=== PATIENT | female | born 1995 | race Caucasian/White ===

== ENCOUNTER 2017-10-03 19:15 | Emergency (ER) | payer MEDICAID ==
[~2017-10-03] VITALS: Ht 162.6 cm; Wt 86.0 kg
[2017-10-03 19:39] VITALS: BP 124/81
[2017-10-03] MEDS ORDERED: ACETAMINOPHEN 500 MG TABLET ONE (20:20)
[2017-10-03] MEDS ORDERED: IBUPROFEN 200 MG TABLET ONE (20:20)
[2017-10-03] MEDS ORDERED: IBUPROFEN 200 MG TABLET PO ONE (20:30)
[2017-10-03] MEDS ORDERED: ACETAMINOPHEN 500 MG TABLET PO ONE (20:30)
== END 2017-10-03 21:32 | disposition home or self-care (01) ==
LOC: ED 21:25
DX: J20.8 Acute bronchitis due to other specified organisms (principal)
CPT/HCPCS: 71046; 93005; 99284

== ENCOUNTER 2018-06-19 16:57 | Emergency (ER) | payer MEDICAID ==
[~2018-06-19] VITALS: Ht 162.6 cm; Wt 88.9 kg
[2018-06-19 17:06] VITALS: BP 124/73
== END 2018-06-19 18:09 | disposition home or self-care (01) ==
LOC: ED 17:20
DX: S46.912A Strain of unspecified muscle, fascia and tendon at shoulder and upper arm level, left arm, initial encounter (principal); X50.9XXA Other and unspecified overexertion or strenuous movements or postures, initial encounter; Y93.89 Activity, other specified; Y92.89 Other specified places as the place of occurrence of the external cause; Y99.0 Civilian activity done for income or pay; F17.200 Nicotine dependence, unspecified, uncomplicated; Z90.89 Acquired absence of other organs
CPT/HCPCS: 99281

== ENCOUNTER 2018-07-01 17:02 | Emergency (ER) | payer MEDICAID ==
[~2018-07-01] VITALS: Ht 162.6 cm; Wt 94.6 kg
[2018-07-01 17:52] LABS: BASOPHILS # (AUTO) 0.02 x10^3/uL (0-0.3); BASOPHILS % (AUTO) 0 % (0-1); EOSINOPHILS # (AUTO) 0.22 x10^3/uL (0-0.8); EOSINOPHILS % (AUTO) 3 % (1-7); LYMPHOCYTES % (AUTO) 25 % (22-44); MD NO; MEAN CORPUSCULAR HEMOGLOBIN 30.3 pg (27.0-34.8); MEAN CORPUSCULAR HGB CONC 34.5 g/dL (32.4-35.8); MEAN CORPUSCULAR VOLUME 87.7 fL (80-100); MEAN PLATELET VOLUME 9.4 fL (7.4-10.4); MONOCYTES # (AUTO) 0.43 x10^3/uL (0-1.4); MONOCYTES % (AUTO) 5 % (2-9); NEUTROPHILS # (AUTO) 5.74 x10^3/uL (1.8-8.0); NEUTROPHILS % (AUTO) 68 % (42-75); PLATELET COUNT 236 x10^3/uL (130-400); RED BLOOD COUNT 4.77 x10^6/uL (3.82-5.3); RED CELL DISTRIBUTION WIDTH 14.6 % (9.6-15.2)
[2018-07-01 18:32] LABS: MICROSCOPIC INDICATED
[2018-07-01 18:48] LABS: CULTURE INDICATED? NO
[2018-07-01 19:26] VITALS: BP 116/68
== END 2018-07-01 19:59 | disposition home or self-care (01) ==
LOC: ED 18:00
DX: O20.0 Threatened abortion (principal); Z3A.01 Less than 8 weeks gestation of pregnancy
CPT/HCPCS: 36415; 76856; 81001; 84702; 85025; 86901; 99285

== ENCOUNTER 2018-07-02 19:17 | Emergency (ER) | payer MEDICAID ==
[~2018-07-02] VITALS: Ht 162.6 cm; Wt 94.0 kg
[2018-07-02 20:08] LABS: BASOPHILS # (AUTO) 0.04 x10^3/uL (0-0.3); BASOPHILS % (AUTO) 0 % (0-1); EOSINOPHILS % (AUTO) 2 % (1-7); LYMPHOCYTES # (AUTO) 2.43 x10^3/uL (1-6.1); LYMPHOCYTES % (AUTO) 25 % (22-44); MD NO; MEAN CORPUSCULAR HGB CONC 33.9 g/dL (32.4-35.8); MEAN CORPUSCULAR VOLUME 88.5 fL (80-100); MEAN PLATELET VOLUME 9.2 fL (7.4-10.4); MONOCYTES # (AUTO) 0.54 x10^3/uL (0-1.4); MONOCYTES % (AUTO) 6 % (2-9); NEUTROPHILS # (AUTO) 6.52 x10^3/uL (1.8-8.0); NEUTROPHILS % (AUTO) 67 % (42-75); PLATELET COUNT 242 x10^3/uL (130-400); RED BLOOD COUNT 4.75 x10^6/uL (3.82-5.3)
[2018-07-02] MEDS ORDERED: ACETAMINOPHEN 325 MG TABLET ONE (20:59)
[2018-07-02] MEDS ORDERED: ACETAMINOPHEN 325 MG TABLET PO ONE (21:30)
[2018-07-02 22:10] VITALS: BP 122/68
== END 2018-07-02 22:13 | disposition home or self-care (01) ==
LOC: ED 21:17
DX: O20.0 Threatened abortion (principal); M54.5 Low back pain; Z90.89 Acquired absence of other organs; Z3A.01 Less than 8 weeks gestation of pregnancy
CPT/HCPCS: 36415; 84702; 85025; 99284

== ENCOUNTER 2018-07-04 18:02 | Emergency (ER) | payer MEDICAID ==
[~2018-07-04] VITALS: Ht 162.6 cm; Wt 94.2 kg
[2018-07-04 20:25] VITALS: BP 114/65
== END 2018-07-04 20:27 | disposition home or self-care (01) ==
LOC: ED 20:15
DX: O20.0 Threatened abortion (principal); Z3A.01 Less than 8 weeks gestation of pregnancy
CPT/HCPCS: 36415; 84702; 99283

== ENCOUNTER 2018-08-21 15:04 | Emergency (ER) | payer MEDICAID ==
[~2018-08-21] VITALS: Ht 162.6 cm; Wt 95.9 kg
[2018-08-21 15:11] VITALS: BP 125/40
[2018-08-21 15:55] LABS: BASOPHILS # (AUTO) 0.04 x10^3/uL (0-0.3); BASOPHILS % (AUTO) 1 % (0-1); EOSINOPHILS # (AUTO) 0.39 x10^3/uL (0-0.8); EOSINOPHILS % (AUTO) 5 % (1-7); LYMPHOCYTES # (AUTO) 2.72 x10^3/uL (1-6.1); LYMPHOCYTES % (AUTO) 32 % (22-44); MD NO; MEAN CORPUSCULAR HGB CONC 32.9 g/dL (32.4-35.8); MEAN CORPUSCULAR VOLUME 88.1 fL (80-100); MEAN PLATELET VOLUME 9.8 fL (7.4-10.4); MONOCYTES # (AUTO) 0.47 x10^3/uL (0-1.4); MONOCYTES % (AUTO) 6 % (2-9); NEUTROPHILS # (AUTO) 4.94 x10^3/uL (1.8-8.0); NEUTROPHILS % (AUTO) 58 % (42-75); PLATELET COUNT 233 x10^3/uL (130-400); RED BLOOD COUNT 4.87 x10^6/uL (3.82-5.3); RED CELL DISTRIBUTION WIDTH 13.6 % (9.6-15.2)
== END 2018-08-21 18:04 | disposition home or self-care (01) ==
LOC: ED 17:39
DX: O03.4 Incomplete spontaneous abortion without complication (principal); O34.81 Maternal care for other abnormalities of pelvic organs, first trimester; O99.331 Smoking (tobacco) complicating pregnancy, first trimester
CPT/HCPCS: 36415; 76801; 84702; 85025; 86901; 99284

== ENCOUNTER 2019-08-31 20:12 | Emergency (ER) | payer MEDICAID, OTHER ==
[~2019-08-31] VITALS: Ht 160 cm; Wt 76.0 kg
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
[2019-08-31] MEDS ORDERED: ACETAMINOPHEN 325 MG TABLET ONE (21:28)
[2019-08-31] MEDS ORDERED: IBUPROFEN 600 MG TABLET ONE (21:28)
[2019-08-31] MEDS ORDERED: DIPH,PERTUSS(ACELL),TET VAC/PF 0.5 ML IM-VACC ONE ×2 (21:36→22:00)
[2019-08-31] MEDS ORDERED: LIDOCAINE-MPF 1%, 5ML ONE (21:41)
[2019-08-31] MEDS ORDERED: BUPIVACAINE 0.25% ONE (21:41)
--- NOTE | 2019-08-31 21:53 | NUR ---
ADVISORY INTERNSHIP AT BEDSIDE, WOUND BEING IRRIGATED, XRAYS HAVE BEEN DONE.
[2019-08-31] MEDS ORDERED: L.E.T SOLUTION TP ONE (22:00)
[2019-08-31] MEDS ORDERED: ACETAMINOPHEN 325 MG TABLET PO ONE (22:00)
[2019-08-31] MEDS ORDERED: IBUPROFEN 600 MG TABLET PO ONE (22:00)
[2019-08-31] MEDS ORDERED: CEFAZOLIN 1,000 MG IM ONE (23:00)
[2019-08-31] MEDS ORDERED: CEFAZOLIN 1,000 MG ONE (23:05)
[2019-08-31] MEDS ORDERED: NEOSPORIN OINT. PKT 1 PACKET ONE (23:56)
--- NOTE | 2019-09-01 00:22 | NUR ---
PT HAS SPLINT IN PLACE, DC INSTRUCTIONS AND RX GIVEN TO PT. ACKNOWLEDGED UNDERSTANDING OF INSTRUCTIONS. REFERRAL TO [facility] GIVEN. PT CALLING FOR RIDE.
[2019-09-01 00:24] VITALS: BP 121/62
== END 2019-09-01 00:27 | disposition home or self-care (01) ==
LOC: ED 22:53
DX: S62.626B Displaced fracture of middle phalanx of right little finger, initial encounter for open fracture (principal); S62.636B Displaced fracture of distal phalanx of right little finger, initial encounter for open fracture; S91.114A Laceration without foreign body of right lesser toe(s) without damage to nail, initial encounter; S80.01XA Contusion of right knee, initial encounter; F17.210 Nicotine dependence, cigarettes, uncomplicated; V49.59XA Passenger injured in collision with other motor vehicles in traffic accident, initial encounter; Y93.89 Activity, other specified; Y92.410 Unspecified street and highway as the place of occurrence of the external cause; Y99.8 Other external cause status
CPT/HCPCS: 12031; 12041; 29125; 73130; 73564; 90471; 90715; 96372; 99285; J0690

== ENCOUNTER 2019-12-13 10:56 | Emergency (ER) | payer MEDICAID, OTHER ==
[~2019-12-13] VITALS: Ht 160 cm; Wt 77.3 kg
[2019-12-13 11:18] VITALS: BP 106/60
[2019-12-13] MEDS ORDERED: IBUPROFEN 800 MG TABLET ONE (11:42)
[2019-12-13] MEDS ORDERED: IBUPROFEN 800 MG TABLET PO ONE (12:00)
== END 2019-12-13 12:23 | disposition home or self-care (01) ==
LOC: ED 11:30
DX: K02.9 Dental caries, unspecified (principal); K08.89 Other specified disorders of teeth and supporting structures; Z90.49 Acquired absence of other specified parts of digestive tract
CPT/HCPCS: 99283

== ENCOUNTER 2021-06-11 15:54 | Emergency (ER) | payer MEDICAID ==
[~2021-06-11] VITALS: Ht 160 cm; Wt 74.0 kg
[2021-06-11 16:30] LABS: BASOPHILS % (AUTO) 1 % (0-1); EOSINOPHILS % (AUTO) 2 % (1-7); LYMPHOCYTES % (AUTO) 27 % (22-44); MEAN CORPUSCULAR HEMOGLOBIN 30.4 pg (27.0-34.8); MEAN CORPUSCULAR HGB CONC 34.5 g/dL (32.4-35.8); MEAN PLATELET VOLUME 9.8 fL (7.4-10.4); MONOCYTES % (AUTO) 8 % (2-9); NEUTROPHILS % (AUTO) 63 % (42-75); PLATELET COUNT 202 x10^3/uL (130-400); RED BLOOD COUNT 4.88 x10^6/uL (3.82-5.3); RED CELL DISTRIBUTION WIDTH 12.9 % (9.6-15.2)
[2021-06-11 16:42] LABS: ALBUMIN 3.7 g/dL (3.4-5.0); ANION GAP 6 mmol/L (5-15); CALCIUM 9.1 mg/dL (8.5-10.1); CHLORIDE 107 mmol/L (98-107)
[2021-06-11 16:48] LABS: ALANINE AMINOTRANSFERASE 17 U/L (12-78); ALKALINE PHOSPHATASE 59 U/L (45-117); BILIRUBIN,TOTAL 0.6 mg/dL (0.2-1.0); CREATININE 0.85 mg/dL (0.55-1.02); TOTAL PROTEIN 7.5 g/dL (6.4-8.2)
--- NOTE | 2021-06-11 17:00 | NUR ---
pt to room from lobby.
--- NOTE | 2021-06-11 17:40 | NUR ---
MD ARMSTRONG AT BEDSIDE FOR INITIAL ASSESSMENT.
[2021-06-11 17:51] VITALS: BP 108/78
--- NOTE | 2021-06-11 18:00 | NUR ---
PT PRESENTS TO ED WITH C/O DENTAL PAIN AND ABD PAIN WITH IRREGULAR PERIODS, LAST PERIOD EARLY . PT DENIES VAG BLEEDING OR DISCHARGE. PT A&O, RESPS EVEN AND UNLABORED. BP AND SPO2 MONITORS IN PLACE. CALL LIGHT IN REACH.
[2021-06-11 18:32] LABS: MICROSCOPIC AUTO
--- NOTE | 2021-06-11 19:05 | NUR ---
RECEIVED REPORT FROM ALEIDA SHIN. PT RESTING ON [facility].
--- NOTE | 2021-06-11 19:07 | NUR ---
REPORT GIVEN TO ALEIDA RIVERA WHO IS ASSUMING CARE.
== END 2021-06-11 19:14 | disposition home or self-care (01) ==
LOC: ED 16:10
DX: K02.9 Dental caries, unspecified (principal); R10.84 Generalized abdominal pain; M62.830 Muscle spasm of back; M25.511 Pain in right shoulder; F17.200 Nicotine dependence, unspecified, uncomplicated
CPT/HCPCS: 36415; 76830; 80053; 81001; 84703; 85025; 87086; 99285